=== PATIENT | male | born 1955 | race Two or more races ===

== ENCOUNTER 2023-10-23 11:09 | Outpatient (CLI) | payer MEDICARE | END 2023-10-23 23:59 | disposition home or self-care (01) | LOC: US 11:09 | PROVIDERS: ATTEND Internal Medicine | DX: N18.9 Chronic kidney disease, unspecified (principal); N26.1 Atrophy of kidney (terminal) | CPT/HCPCS: 76770-TC ==

== ENCOUNTER → 2024-01-17 | Outpatient (CLI) | payer MEDICARE, OTHER | END | disposition home or self-care (01) | LOC: MSC 14:00 | PROVIDERS: ATTEND Internal Medicine | DX: E11.22 Type 2 diabetes mellitus with diabetic chronic kidney disease (principal); I12.9 Hypertensive chronic kidney disease with stage 1 through stage 4 chronic kidney disease, or unspecified chronic kidney disease; N18.30 Chronic kidney disease, stage 3 unspecified; E87.5 Hyperkalemia; R31.29 Other microscopic hematuria; R60.0 Localized edema; E83.9 Disorder of mineral metabolism, unspecified; M89.9 Disorder of bone, unspecified; D64.9 Anemia, unspecified; M1A.09X1 Idiopathic chronic gout, multiple sites, with tophus (tophi); E66.9 Obesity, unspecified; N40.0 Benign prostatic hyperplasia without lower urinary tract symptoms ==